=== PATIENT | female | born 1945 | race Caucasian/White ===

== ENCOUNTER → 2017-12-06 | Outpatient (CLI) | payer MEDICARE ==
--- NOTE | 2017-12-06 18:26 | Diagnostic Imaging Report ---
INDICATION: Low back pain. TIME OF EXAM: 3:59 p.m. FINDINGS: Three views of the lumbar spine were obtained. Curvature and alignment are normal. Vertebral body heights are maintained without evidence of acute compression fracture. Disc spaces are fairly well maintained. There does appear to be some generalized demineralization noted. IMPRESSION: No acute bony abnormality is detected. Dictated by: Dictated on workstation # [id number]
[2017-12-06 23:10] LABS: AMPHETAMINES URINE QUAL DS Negative; BARBITURATES URINE QUAL DS Negative; BENZODIAZEPINE URINE QUAL DS Negative
== END ==
LOC: RAD 15:12
PROVIDERS: ATTEND Nurse Practitioner
DX: G89.29 Other chronic pain (principal); M54.5 Low back pain
CPT/HCPCS: 36415; 72100; 80307

== ENCOUNTER → 2018-08-20 | Outpatient (CLI) | payer MEDICARE ==
--- NOTE | 2018-08-20 14:48 | Diagnostic Imaging Report ---
INDICATION: Mid and low back pain as well as bilateral leg and feet pain. TECHNIQUE: Multiplanar and multisequence imaging of the thoracic spine was performed without contrast. FINDINGS: Curvature and alignment of the thoracic spine is normal. Vertebral body heights are maintained. There is no acute compression fracture. 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 No other marrow signal abnormalities are seen. Thoracic cord does show normal homogeneous signal intensity and normal morphology. There is normal height and signal intensity to the thoracic intervertebral discs. No focal disc protrusion is seen. No central canal or neuroforaminal stenosis is seen. Paraspinous tissues are unremarkable. IMPRESSION: Essentially unremarkable MRI of the thoracic spine. No disc protrusion, central canal or neuroforaminal stenosis is identified. Dictated by: Dictated on workstation # [id number]
--- NOTE | 2018-08-20 15:00 | Diagnostic Imaging Report ---
PROCEDURE: MRI lumbar spine. TECHNIQUE: Multiplanar, multisequence MRI of the lumbar spine was performed without contrast. INDICATION: Mid and low back pain as well as lower extremity pain. COMPARISON: No prior studies are available for comparison. FINDINGS: Curvature and alignment is normal apart from minimal anterolisthesis of L3 on L4. Vertebral body heights and marrow signal intensity are normal. No geographic marrow lesion or evidence of acute compression fracture seen. There is a mild disc desiccation at L3-L4 and L4-L5 levels. Conus is unremarkable at the T12-L1 level. T12-L1: The central canal and neural foramina are widely patent. L1-L2: Central canal and neural foramina are widely patent. L2-L3: Central canal and neural foramina are widely patent. L3-L4: Central canal is widely patent. There is very mild neuroforaminal narrowing bilaterally due to broad-based disc/osteophyte complex bilaterally. L4-L5: There are hypertrophic facet changes and ligamentous thickening. Central canal remains widely patent. No significant neuroforaminal narrowing is seen. L5-S1: Central canal and neural foramina are widely patent. Paraspinous tissues are unremarkable. IMPRESSION: There does appear to be mild neural foramina narrowing bilaterally at L3-L4 level. No central canal stenosis is seen. No acute compression fracture is identified. Dictated by: Dictated on workstation # [id number]
== END ==
LOC: RAD 12:36
PROVIDERS: ATTEND Physician Assistant
DX: M54.16 Radiculopathy, lumbar region (principal); M54.6 Pain in thoracic spine
CPT/HCPCS: 72146; 72148

== ENCOUNTER → 2021-10-31 | Outpatient (CLI) | payer MEDICARE | LOC: CARD 13:30 | PROVIDERS: ATTEND Internal Medicine | DX: R00.2 Palpitations (principal) ==